=== PATIENT | male | born 1965 | race American Indian/Alaskan Native ===

== ENCOUNTER 2021-11-20 21:55 | Observation (INO) | payer OTHER ==
[2021-11-20] MEDS ORDERED: SODIUM CHLORIDE 0.9% 1000 ML 1,000 ML IV ONE (22:22)
[2021-11-20] MEDS ORDERED: ONDANSETRON 4 MG/2 ML INJ IV ONE (22:22)
[2021-11-20] MEDS ORDERED: PANTOPRAZOLE 40 MG INJ IV ONE (22:30)
--- NOTE | 2021-11-20 22:50 | Emergency Department Report ---
ED GI Bleed HPI - General Chief complaint: Abdominal Pain Stated complaint: RECTAL BLEED Time Seen by Provider: 11/20/21 22:21 Source: EMS Mode of arrival: Stretcher Limitations: No Limitations - History of Present Illness Initial comments: Patient is a 56-year-old male presents emergency department complaint of GI bleeding. Patient states that it started today he noticed bright red blood and dark stools. He states he has not had a colonoscopy in the past. He denies abdominal pain but notes some left-sided rib pain. Patient denies any vomiting. He has not had any fevers chills cough or shortness of breath. Patient denies any history of trauma. Of note patient is a Zoroastrian and does not want any blood transfusion. Severity scale (0 -10): 6 - Related Data Allergies Allergy/AdvReac Type Severity Reaction Status Date / Time No Known Drug Allergies Allergy Unknown Unknown Verified 11/20/21 22:33 ED Review of Systems ROS: Stated complaint: RECTAL BLEED Other details as noted in HPI Constitutional: denies: chills, fever Eyes: denies: eye pain, eye discharge, vision change ENT: denies: ear pain, throat pain Respiratory: denies: cough, shortness of breath, wheezing Cardiovascular: denies: chest pain, palpitations Endocrine: no symptoms reported Gastrointestinal: melena, hematochezia. denies: abdominal pain, nausea, vomiting, diarrhea, hematemesis Genitourinary: denies: urgency, dysuria Musculoskeletal: denies: back pain, joint swelling, arthralgia Skin: denies: rash, lesions Neurological: denies: headache, weakness, paresthesias Psychiatric: denies: anxiety, depression Hematological/Lymphatic: denies: easy bleeding, easy bruising ED Past Medical Hx - Social History Smoking Status: Never Smoker Substance Use Type: Alcohol ED Physical Exam - General Limitations: No Limitations General appearance: alert, in no apparent distress - Head Head exam: Present: atraumatic, normocephalic - Eye Eye exam: Present: normal appearance - ENT ENT exam: Present: mucous membranes moist - Neck Neck exam: Present: normal inspection - Respiratory Respiratory exam: Present: normal lung sounds bilaterally. Absent: respiratory distress - Cardiovascular Cardiovascular Exam: Present: tachycardia. Absent: systolic murmur, diastolic murmur, rubs, gallop - GI/Abdominal GI/Abdominal exam: Present: soft, normal bowel sounds - Extremities Exam Extremities exam: Present: normal inspection - Back Exam Back exam: Present: normal inspection - Neurological Exam Neurological exam: Present: alert, oriented X3 - Psychiatric Psychiatric exam: Present: normal affect, normal mood - Skin Skin exam: Present: warm, dry, intact, normal color. Absent: rash ED Course Vital Signs 11/20/21 11/20/21 11/20/21 22:04 22:34 22:45 Temperature 99 F Pulse Rate 124 H 86 84 Respiratory 16 16 Rate Blood Pressure 134/91 134/87 141/90 [Right] O2 Sat by Pulse 94 96 96 Oximetry - Reevaluation(s) Reevaluation #1: 11/20/21 23:16 Patient's rectal exam shows dark blood per rectum. There is also blood in the patient's clothes and on the towel beneath him. I am concerned for significant bleeding. Patient once again endorses that he does not want blood products. Patient's labs are pending. He is no longer tachycardic so IV fluids have been stopped as to not further dilute patient's blood. Reevaluation #2: 11/21/21 02:04 Patient's hemoglobin was noted to be 12.9. Patient's vital signs are stable. Patient had CTA did not reveal source of bleeding. Anuradha galarza, Dr. Finley have been consulted and recommended n.p.o. status and GoLYTELY as patient will undergo colonoscopy. - Consultations Consultation #1: 11/20/21 23:59 Anuradha Montoya Gastro: Agrees that patient is appropriate for admission here. Recommends n.p.o. status and GoLYTELY as patient will undergo colonoscopy. ED Medical Decision Making - Lab Data Result diagrams: 11/20/21 23:00 11/20/21 23:00 - Medical Decision Making Patient is a 56-year-old male presents emergency department complaint of lower GI bleeding. Patient is tachycardic but has a stable blood pressure upon initial evaluation. Plan for basic labs including type and screen, coagulation factors and CBC. Will also obtain chest x-ray given left-sided rib pain and likely a CT scan of the abdomen and pelvis. Given patient does not currently want a transfusion will try to manage his bleeding without providing blood products. I have given Protonix at this time. Will monitor patient closely and patient likely to be admitted pending results. Critical care attestation.: If time is entered above; I have spent that time in minutes in the direct care of this critically ill patient, excluding procedure time. ED Disposition Clinical Impression: Lower GI bleed Disposition: ADMITTED INPATIENT Is pt being admited?: Yes Does the pt Need Aspirin: No Condition: Stable
--- NOTE | 2021-11-20 23:13 | XRay Report ---
CHEST 1 VIEW INDICATION / CLINICAL INFORMATION: L rib pain. COMPARISON: None available. FINDINGS: SUPPORT DEVICES: None. HEART / MEDIASTINUM: No significant abnormality. LUNGS / PLEURA: The lungs are clear. No pneumothorax. ADDITIONAL FINDINGS: No significant additional findings. IMPRESSION: 1. No active cardiopulmonary disease. No abnormality of the left chest wall. Signer Name: Dinesh Muhammad II, MD Signed: 11/20/2021 11:09 PM Workstation Name: [id number]
[2021-11-20 23:21] LABS: Basophils % (Auto) 0.2 % (0.0-1.8); Eosinophils # (Auto) 0.2 K/mm3 (0.0-0.4); Eosinophils % (Auto) 1.2 % (0.0-4.3); Hematocrit 40.6 % (35.5-45.6); Hemoglobin 12.9 gm/dl (11.8-15.2); Lymphocytes # (Auto) 1.2 K/mm3 (1.2-5.4); Lymphocytes % (Auto) 8.2 % (13.4-35.0); Mean Corpuscular HGB Conc 32 % (32-34); Mean Corpuscular Volume 95 fl (84-94); Monocytes # (Auto) 0.9 K/mm3 (0.0-0.8); Monocytes % (Auto) 6.3 % (0.0-7.3); Platelet Count 267 K/mm3 (140-440); Red Blood Count 4.27 M/mm3 (3.65-5.03); Red Cell Distribution Width 13.2 % (13.2-15.2)
[2021-11-20 23:31] LABS: INR 1.03 (0.87-1.13)
[2021-11-20 23:32] LABS: Partial Thromboplastin Time 25.5 Sec. (24.2-36.6)
[2021-11-20 23:45] LABS: Alanine Aminotransferase 17 units/L (7-56); Albumin 3.3 g/dL (3.9-5); BUN/Creatinine Ratio 16; Blood Urea Nitrogen 18 mg/dL (9-20); Calcium 8.1 mg/dL (8.4-10.2); Hemolysis Index 21
[2021-11-21] MEDS ORDERED: POLYETHYLENE GLYCOL/ELECT SOLN 4000 ML PO ONE (00:05)
[2021-11-21] MEDS ORDERED: ACETAMINOPHEN 325 MG TAB PO PRN (00:18)
[2021-11-21] MEDS ORDERED: HYDROmorphone 1 MG/1 ML INJ IV PRN (00:18)
[2021-11-21] MEDS ORDERED: MORPHINE 2 MG/1 ML INJ IV PRN (00:18)
[2021-11-21] MEDS ORDERED: ALBUTEROL 2.5 MG/3 ML NEBU IH PRN (00:18)
[2021-11-21] MEDS ORDERED: ONDANSETRON 4 MG/2 ML INJ IV PRN (00:18)
--- NOTE | 2021-11-21 00:26 | History and Physical Report ---
History of Present Illness Date of examination: 11/21/21 Date of admission: 11/21/21 Chief complaint: Abdominal pain Rectal bleeding History of present illness: 56-year-old male with history of most likely alcohol abuse was brought to the hospital because of GI bleeding. Patient noticed bright red blood and dark stools. He states he has not had a colonoscopy in the past. He denies abdominal pain but notes some left-sided rib pain. Patient denies any vomiting. He has not had any fevers chills cough or shortness of breath. Patient denies any history of trauma. Of note patient is a Rastafari and does not want any blood transfusion. In the emergency room patient is found to have hemoglobin of 12.9 and hematocrit 40.6, platelet 269 and WBC 14.4. Subsequently Case discussed with GI doctors were going to admit the patient we will put the patient on Protonix drip and GI will see the patient for colonoscopy in the morning Past History Past Medical History: other (Alcohol abuse) Past Surgical History: No surgical history Social history: alcohol abuse Family history: no significant family history Medications and Allergies Allergies Allergy/AdvReac Type Severity Reaction Status Date / Time No Known Drug Allergies Allergy Unknown Unknown Verified 11/20/21 22:33 Review of Systems All systems: negative Gastrointestinal: abdominal pain, diarrhea, melena, hematochezia Exam - Constitutional Vitals: Temp Pulse Resp BP Pulse Ox 99 F 84 16 141/90 96 11/20/21 22:04 11/20/21 22:45 11/20/21 22:34 11/20/21 22:45 11/20/21 22:45 General appearance: Present: no acute distress, well-nourished - EENT Eyes: Present: PERRL ENT: hearing intact, clear oral mucosa - Neck Neck: Present: supple, normal ROM - Respiratory Respiratory effort: normal Respiratory: bilateral: diminished - Cardiovascular Heart Sounds: Present: S1 & S2. Absent: rub, click - Extremities Extremities: pulses symmetrical, No edema Peripheral Pulses: within normal limits - Abdominal General gastrointestinal: Present: soft, non-tender, non-distended, normal bowel sounds Male genitourinary: Present: normal - Integumentary Integumentary: Present: clear, warm, dry - Musculoskeletal Musculoskeletal: gait normal, strength equal bilaterally - Psychiatric Psychiatric: appropriate mood/affect, intact judgment & insight - Neurologic Neurologic: CNII-XII intact, moves all extremities HEART Score - HEART Score Troponin: Troponin T < 0.010 ng/mL (0.00-0.029) 11/20/21 23:00 Results - Labs CBC & Chem 7: 11/20/21 23:00 11/20/21 23:00 Labs: Laboratory Last Values WBC 14.4 K/mm3 (4.5-11.0) H 11/20/21 23:00 RBC 4.27 M/mm3 (3.65-5.03) 11/20/21 23:00 Hgb 12.9 gm/dl (11.8-15.2) 11/20/21 23:00 Hct 40.6 % (35.5-45.6) 11/20/21 23:00 MCV 95 fl (84-94) H 11/20/21 23:00 MCH 30 pg (28-32) 11/20/21 23:00 MCHC 32 % (32-34) 11/20/21 23:00 RDW 13.2 % (13.2-15.2) 11/20/21 23:00 Plt Count 267 K/mm3 (140-440) 11/20/21 23:00 Lymph % (Auto) 8.2 % (13.4-35.0) L 11/20/21 23:00 [place] % (Auto) 6.3 % (0.0-7.3) 11/20/21 23:00 Eos % (Auto) 1.2 % (0.0-4.3) 11/20/21 23:00 Baso % (Auto) 0.2 % (0.0-1.8) 11/20/21 23:00 Lymph # (Auto) 1.2 K/mm3 (1.2-5.4) 11/20/21 23:00 [place] # (Auto) 0.9 K/mm3 (0.0-0.8) H 11/20/21 23:00 Eos # (Auto) 0.2 K/mm3 (0.0-0.4) 11/20/21 23:00 Baso # (Auto) 0.0 K/mm3 (0.0-0.1) 11/20/21 23:00 Seg Neutrophils % 84.1 % (40.0-70.0) H 11/20/21 23:00 Seg Neutrophils # 12.1 K/mm3 (1.8-7.7) H 11/20/21 23:00 PT 14.6 Sec. (12.2-14.9) 11/20/21 23:00 INR 1.03 (0.87-1.13) 11/20/21 23:00 APTT 25.5 Sec. (24.2-36.6) 11/20/21 23:00 Sodium 138 mmol/L (137-145) 11/20/21 23:00 Potassium 4.7 mmol/L (3.6-5.0) 11/20/21 23:00 Chloride 108.4 mmol/L (98-107) H 11/20/21 23:00 Carbon Dioxide 22 mmol/L (22-30) 11/20/21 23:00 Anion Gap 12 mmol/L 11/20/21 23:00 BUN 18 mg/dL (9-20) 11/20/21 23:00 Creatinine 1.1 mg/dL (0.8-1.3) 11/20/21 23:00 Estimated GFR > 60 ml/min 11/20/21 23:00 BUN/Creatinine Ratio 16 % 11/20/21 23:00 Glucose 150 mg/dL (75-100) H 11/20/21 23:00 Calcium 8.1 mg/dL (8.4-10.2) L 11/20/21 23:00 Magnesium 1.90 mg/dL (1.7-2.3) 11/20/21 23:00 Total Bilirubin 0.20 mg/dL (0.1-1.2) 11/20/21 23:00 AST 19 units/L (5-40) 11/20/21 23:00 ALT 17 units/L (7-56) 11/20/21 23:00 Alkaline Phosphatase 74 units/L (35-129) 11/20/21 23:00 Troponin T < 0.010 ng/mL (0.00-0.029) 11/20/21 23:00 Total Protein 5.8 g/dL (6.3-8.2) L 11/20/21 23:00 Albumin 3.3 g/dL (3.9-5) L 11/20/21 23:00 Albumin/Globulin Ratio 1.3 % 11/20/21 23:00 Lipase 35 units/L (13-60) 11/20/21 23:00 Blood Type B POSITIVE 11/20/21 23:00 Microbiology: Microbiology 11/20/21 23:00 Stool Stool Occult Blood (ABEBE) - Final - Imaging and Cardiology Chest x-ray: report reviewed Assessment and Plan VTE prophylaxis?: Mechanical Plan of care discussed with patient/family: Yes - Patient Problems (1) Rectal bleeding Current Visit: Yes Status: Acute Plan to address problem: Admit the patient to the medical telemetry. NPO. D5 normal saline at the rate of 100 cc/h. Protonix drip 8 mg/h. Serial H&H. GI evaluation for colonoscopy in the morning. Patient is a Rastafari (2) Abdominal pain Current Visit: Yes Status: Acute Plan to address problem: NPO. D5 normal saline at the rate of 100 cc/h. Protonix drip 8 mg/h. Morphine 2 mg IV every 4 hours as needed. Serial H&H. GI evaluation for colonoscopy in the morning. Patient is a Rastafari (3) Alcohol abuse Current Visit: Yes Status: Acute Plan to address problem: Patient counseled regarding quit drinking. We put the patient on thiamine folic acid and banana bag (4) DVT prophylaxis Current Visit: Yes Status: Acute Plan to address problem: SCD for DVT prophylaxis. Protonix drip for GI prophylaxis. Patient is a full code
[2021-11-21] MEDS ORDERED: THIAMINE 100 MG, FOLIC ACID 1 MG, MULTIPLE VITAMIN INJ, ADULT 10 ML in SODIUM CHLORIDE ... IV ONE (00:27)
[2021-11-21] MEDS ORDERED: D5W/0.9% NACL 1,000 ML IV SCH (01:00)
--- NOTE | 2021-11-21 01:30 | Cat Scan Report ---
CTA ABDOMEN AND PELVIS WITHOUT AND WITH CONTRAST INDICATION / CLINICAL INFORMATION: lower gi bleeding; L flank pain. TECHNIQUE: Axial CT images were obtained through the abdomen and pelvis before and after after inject ion of 100 cc Omnipaque 350 IV contrast. 3 plane MIP / 3D reconstructions were produced. Multiple pha ses of contrast were acquired including arterial, portal venous, and delayed phase. All CT scans at t his location are performed using CT dose reduction for ALARA by means of automated exposure control. COMPARISON: None available. VASCULAR FINDINGS: AORTA: No significant abnormality. RENAL ARTERIES: No significant abnormality. CELIAC ARTERY: No significant abnormality. SUPERIOR MESENTERIC ARTERY: No significant abnormality. INFERIOR MESENTERIC ARTERY: No significant abnormality. RIGHT ILIAC ARTERIES: No significant abnormality.. LEFT ILIAC ARTERIES: No significant abnormality.. NONVASCULAR FINDINGS: LOWER CHEST: No significant abnormality of the imaged chest. LIVER: No significant abnormality. GALLBLADDER: No significant abnormality. BILE DUCTS: No significant abnormality. SPLEEN: No significant abnormality. PANCREAS: No significant abnormality. ADRENALS: Left adrenal gland demonstrates nodular thickening compatible with adenoma. RIGHT KIDNEY / URETER: No significant abnormality. LEFT KIDNEY / URETER: No significant abnormality. STOMACH / DUODENUM / SMALL BOWEL: No significant abnormality. COLON: Small hyperdense focus at 0700 hours within the lower rectum image #339 series #2 persists fol lowing administration of intravenous contrast without significant interval change. This is thought to reflect high attenuation stool. Additionally, a diverticulum along the anterior cecum demonstrates h igh attenuation material on the noncontrast series and remain stable. No active extravasation of cont rast within the lumen of the bowel is demonstrated. APPENDIX: No significant abnormality. PERITONEUM: No free air or free fluid are present within the abdomen or pelvis. LYMPH NODES: No significant adenopathy. IVC / VEINS: No significant abnormality. URINARY BLADDER: No significant abnormality. REPRODUCTIVE ORGANS: Mild nonspecific periprostatic fat stranding is present on multiple series. Pros tatitis not excluded. ADDITIONAL ABDOMINAL/PELVIC FINDINGS: None. SKELETAL SYSTEM: No significant abnormality. . IMPRESSION: 1. No specific etiology of lower GI bleed demonstrated. 2. Mild prostatitis not excluded. Signer Name: Dinesh Muhammad II, MD Signed: 11/21/2021 1:26 AM Workstation Name: [id number]
[2021-11-21] MEDS: PANTOPRAZOLE 80 MG in SODIUM CHLORIDE 0.9% 100 ML IV SCH ×2 (01:56→21:51)
[2021-11-21] MEDS: IPRATROPIUM/ALBUTEROL SULFATE 3 ML AMPUL.NEB IH SCH ×4 (03:32→23:12)
--- NOTE | 2021-11-21 09:15 | Progress Note ---
Assessment and Plan Assessment and plan: -- Rectal bleeding Current Visit: Yes Status: Acute D5 normal saline at the rate of 100 cc/h. Protonix drip 8 mg/h. Serial H&H. GI evaluation for colonoscopy in the morning. Patient is a Sikhism -- Abdominal pain Current Visit: Yes Status: Acute NPO. D5 normal saline at the rate of 100 cc/h. Protonix drip 8 mg/h. Morphine 2 mg IV every 4 hours as needed. Serial H&H. GI evaluation for colonoscopy in the morning. Patient is a Sikhism --Alcohol abuse Current Visit: Yes Status: Acute Patient counseled regarding quit drinking. We put the patient on thiamine folic acid and banana bag -- DVT prophylaxis Current Visit: Yes Status: Acute SCD for DVT prophylaxis. Protonix drip for GI prophylaxis. Patient is a full code History Interval history: I seen and examined the patient at the bedside Patient's chart and medications reviewed Patient feels slightly better still has some abdominal pain Vital signs noted Admitted with rectal bleeding, continues to have intermittent episodes GI has evaluated the patient. Recommend colonoscopy tomorrow Hospitalist Physical - Constitutional Vitals: Temp Pulse Resp BP Pulse Ox 98.4 F 83 18 151/99 99 11/21/21 08:16 11/21/21 08:16 11/21/21 08:16 11/21/21 08:16 11/21/21 08:16 General appearance: Present: no acute distress, well-nourished - EENT Eyes: Present: PERRL, EOM intact - Neck Neck: Present: supple, normal ROM - Respiratory Respiratory effort: normal Respiratory: bilateral: diminished, negative: rales, rhonchi, wheezing - Cardiovascular Rhythm: regular Heart Sounds: Present: S1 & S2 - Extremities Extremities: no ischemia, No edema - Abdominal General gastrointestinal: soft, non-tender, non-distended, normal bowel sounds - Integumentary Integumentary: Present: clear, warm - Psychiatric Psychiatric: appropriate mood/affect, cooperative - Neurologic Neurologic: moves all extremities HEART Score - HEART Score Troponin: Troponin T < 0.010 ng/mL (0.00-0.029) 11/20/21 23:00 Results - Labs CBC & Chem 7: 11/21/21 19:55 11/20/21 23:00 Labs: Laboratory Last Values WBC 14.4 K/mm3 (4.5-11.0) H 11/20/21 23:00 RBC 4.27 M/mm3 (3.65-5.03) 11/20/21 23:00 Hgb 12.9 gm/dl (11.8-15.2) 11/20/21 23:00 Hct 40.6 % (35.5-45.6) 11/20/21 23:00 MCV 95 fl (84-94) H 11/20/21 23:00 MCH 30 pg (28-32) 11/20/21 23:00 MCHC 32 % (32-34) 11/20/21 23:00 RDW 13.2 % (13.2-15.2) 11/20/21 23:00 Plt Count 267 K/mm3 (140-440) 11/20/21 23:00 Lymph % (Auto) 8.2 % (13.4-35.0) L 11/20/21 23:00 [place] % (Auto) 6.3 % (0.0-7.3) 11/20/21 23:00 Eos % (Auto) 1.2 % (0.0-4.3) 11/20/21 23:00 Baso % (Auto) 0.2 % (0.0-1.8) 11/20/21 23:00 Lymph # (Auto) 1.2 K/mm3 (1.2-5.4) 11/20/21 23:00 [place] # (Auto) 0.9 K/mm3 (0.0-0.8) H 11/20/21 23:00 Eos # (Auto) 0.2 K/mm3 (0.0-0.4) 11/20/21 23:00 Baso # (Auto) 0.0 K/mm3 (0.0-0.1) 11/20/21 23:00 Seg Neutrophils % 84.1 % (40.0-70.0) H 11/20/21 23:00 Seg Neutrophils # 12.1 K/mm3 (1.8-7.7) H 11/20/21 23:00 PT 14.6 Sec. (12.2-14.9) 11/20/21 23:00 INR 1.03 (0.87-1.13) 11/20/21 23:00 APTT 25.5 Sec. (24.2-36.6) 11/20/21 23:00 Sodium 138 mmol/L (137-145) 11/20/21 23:00 Potassium 4.7 mmol/L (3.6-5.0) 11/20/21 23:00 Chloride 108.4 mmol/L (98-107) H 11/20/21 23:00 Carbon Dioxide 22 mmol/L (22-30) 11/20/21 23:00 Anion Gap 12 mmol/L 11/20/21 23:00 BUN 18 mg/dL (9-20) 11/20/21 23:00 Creatinine 1.1 mg/dL (0.8-1.3) 11/20/21 23:00 Estimated GFR > 60 ml/min 11/20/21 23:00 BUN/Creatinine Ratio 16 % 11/20/21 23:00 Glucose 150 mg/dL (75-100) H 11/20/21 23:00 Calcium 8.1 mg/dL (8.4-10.2) L 11/20/21 23:00 Magnesium 1.90 mg/dL (1.7-2.3) 11/20/21 23:00 Total Bilirubin 0.20 mg/dL (0.1-1.2) 11/20/21 23:00 AST 19 units/L (5-40) 11/20/21 23:00 ALT 17 units/L (7-56) 11/20/21 23:00 Alkaline Phosphatase 74 units/L (35-129) 11/20/21 23:00 Troponin T < 0.010 ng/mL (0.00-0.029) 11/20/21 23:00 Total Protein 5.8 g/dL (6.3-8.2) L 11/20/21 23:00 Albumin 3.3 g/dL (3.9-5) L 11/20/21 23:00 Albumin/Globulin Ratio 1.3 % 11/20/21 23:00 Lipase 35 units/L (13-60) 11/20/21 23:00 Blood Type B POSITIVE 11/20/21 23:00 Antibody Screen Negative 11/20/21 23:00 Microbiology: Microbiology 11/20/21 23:00 Stool Stool Occult Blood (ABEBE) - Final Adrian/IV: Voiding Method Urinal Active Medications - Current Medications Current Medications: Generic Name Dose Route Start Last Admin Trade Name Freq PRN Reason Stop Dose Admin Acetaminophen 650 mg 11/21/21 00:18 Acetaminophen 325 Mg Tab PO Q4H PRN Pain MILD(1-3)/Fever >100.5/SEYMOUR Albuterol 2.5 mg 11/21/21 00:18 Albuterol 2.5 Mg/3 Ml Nebu IH Q3HRT PRN Shortness Of Breath Albuterol/Ipratropium 1 ampul 11/21/21 02:00 11/21/21 03:32 Ipratropium/Albuterol Sulfate 3 Ml Ampul.Neb IH Not Given Q6HRT CARLOS Hydromorphone HCl 0.5 mg 11/21/21 00:18 Hydromorphone 1 Mg/1 Ml Inj IV Q3H PRN Pain , Severe (7-10) Dextrose/Sodium Chloride 1,000 mls @ 100 mls/hr 11/21/21 01:00 11/21/21 07:53 D5ns IV 100 mls/hr DIRECT CARLOS Administration Pantoprazole Sodium 80 mg/ 100 mls @ 10 mls/hr 11/21/21 01:00 11/21/21 01:56 Sodium Chloride IV 8 mg/hr DIRECT CARLOS 10 mls/hr Administration 8 MG/HR Morphine Sulfate 2 mg 11/21/21 00:18 Morphine 2 Mg/1 Ml Inj IV Q4H PRN Pain, Moderate (4-6) Ondansetron HCl 4 mg 11/21/21 00:18 Ondansetron 4 Mg/2 Ml Inj IV Q8H PRN Nausea And Vomiting Sodium Chloride 10 ml 11/21/21 10:00 Sodium Chloride 0.9% 10 Ml Flush Syringe IV BID CARLOS Sodium Chloride 10 ml 11/21/21 00:18 Sodium Chloride 0.9% 10 Ml Flush Syringe IV PRN PRN LINE FLUSH
--- NOTE | 2021-11-21 16:49 | Consultation ---
DATE OF CONSULTATION: 11/21/2021 INDICATIONS: 1. Anemia. 2. GI bleed. REFERRING PHYSICIAN: Dr. Desi Wolf HISTORY OF PRESENT ILLNESS: The patient is a 56-year-old male with history of alcohol abuse, now being seen for GI bleed. The patient reports bouts of bright red followed by black stools, which brought him to the Emergency Room 1-2 days prior to admission. The patient reports he has also had what he calls as gurgling sensation in his mid to upper abdominal area. He reports no nausea or vomiting. Denies any reflux. Denies any weight loss. Denies any lower GI symptoms. The patient has never had GI evaluation in the past. No other specific problems or complaints. PAST MEDICAL HISTORY: Alcohol abuse. MEDICATIONS: Reviewed and updated in chart. ALLERGIES: No known drug allergies. SOCIAL HISTORY: Alcohol abuse. Denies tobacco or IV drug abuse. FAMILY HISTORY: Negative for colon cancer, IBD, or liver disease. REVIEW OF SYSTEMS: GENERAL: Reports some weakness. HEENT: No visual complaints or tinnitus. PULMONARY: Shortness of breath, chest pain. GASTROINTESTINAL: Reports bloody stools. All points of 13-point review of system otherwise negative. PHYSICAL EXAMINATION: VITAL SIGNS: Temperature of 98.4, pulse 80, respiration 18, blood pressure 151/99. GENERAL: Fairly nourished black male in no acute distress. HEENT: Pupils round and reactive. PULMONARY: Clear to auscultation bilaterally. CARDIOVASCULAR: Regular rate and rhythm. Normal S1, S2. ABDOMEN: Soft, nontender, nondistended. SKIN: No obvious rashes. LABORATORY DATA: Pertinent for white count of 14.4, hemoglobin and hematocrit of 12.9 and 40.6, platelet count of 267. Coags within normal limits. Chem-7 within normal limits. LFTs within normal limits. CTA was negative for signs of bleeding. ASSESSMENT: A 56-year-old male with a history of alcohol abuse, now presents with bright red and black stools prior to admission with no history of gastrointestinal evaluation in the past. Concern for both upper and lower potential gastrointestinal bleed pathology. PLAN: 1. Follow hematocrit and transfuse as needed. 2. PPI daily. 3. Avoid NSAIDs and aspirin. 4. Clear liquid diet with n.p.o. after midnight. 5. Plan EGD, colonoscopy in a.m. TID: [id number] RECEIPT: [id number] [facility]LE/AIDAN
[2021-11-21] MEDS ORDERED: POLYETHYLENE GLYCOL/ELECT SOLN 4000 ML PO SCH (17:00)
[2021-11-21 20:34] LABS: Hematocrit 30.5 % (35.5-45.6); Hemoglobin 10.2 gm/dl (11.8-15.2)
--- NOTE | 2021-11-22 00:56 | Consultation ---
DATE OF CONSULTATION: 11/21/2021 REFERRING PHYSICIAN: Desi Wolf MD INDICATION: 1. Rectal bleeding. 2. Anemia. HISTORY OF PRESENT ILLNESS: The patient is a 56-year-old black male who presents for rectal bleeding. The patient reports usual state of health when he started noticing rectal bleeding. The patient does report history of alcohol abuse. He reported bright red. DICTATION ENDS ABRUPTLY. TID: [id number] RECEIPT: [id number] [facility]/[place]
[2021-11-22 06:05] LABS: Basophils % (Auto) 0.3 % (0.0-1.8); Eosinophils # (Auto) 0.1 K/mm3 (0.0-0.4); Eosinophils % (Auto) 1.7 % (0.0-4.3); Hematocrit 27.1 % (35.5-45.6); Hemoglobin 8.9 gm/dl (11.8-15.2); Lymphocytes # (Auto) 1.6 K/mm3 (1.2-5.4); Lymphocytes % (Auto) 18.3 % (13.4-35.0); Mean Corpuscular HGB Conc 33 % (32-34); Mean Corpuscular Volume 94 fl (84-94); Monocytes # (Auto) 0.5 K/mm3 (0.0-0.8); Monocytes % (Auto) 6.3 % (0.0-7.3); Platelet Count 262 K/mm3 (140-440); Red Blood Count 2.87 M/mm3 (3.65-5.03); Red Cell Distribution Width 13.6 % (13.2-15.2)
[2021-11-22 06:30] LABS: BUN/Creatinine Ratio 8; Blood Urea Nitrogen 6 mg/dL (9-20); Calcium 7.2 mg/dL (8.4-10.2); Hemolysis Index 3
[2021-11-22] MEDS ORDERED: WATER FOR IRRIG STERILE 250 ML BOTTLE IR ONE (08:30)
[2021-11-22] MEDS ORDERED: SODIUM CHLORIDE 0.9% 1000 ML 1,000 ML ONE (08:30)
[2021-11-22] MEDS ORDERED: WATER FOR IRRIG STERILE 1,000 ML BOTTLE ONE (08:30)
[2021-11-22] MEDS ORDERED: propofoL 200 MG/20 ML VIAL IV ONE (08:52)
--- NOTE | 2021-11-22 09:02 | Anesthesia Consultation ---
Anesthesia Consult and Med Hx Date of service: 11/22/21 - Airway Anesthetic Teeth Evaluation: Good ROM Head & Neck: Adequate Mental/Hyoid Distance: Adequate Mallampati Class: Class III Intubation Access Assessment: Possibly Difficult - Pre-Operative Health Status ASA Pre-Surgery Classification: ASA2 Proposed Anesthetic Plan: MAC - Pulmonary Hx Smoking: No Hx Respiratory Symptoms: No - Cardiovascular System Hx Hypertension: No Hx Heart Attack/AMI: No - Central Nervous System CVA: No - Endocrine Hx Renal Disease: No Hx Liver Disease: No Hx Insulin Dependent Diabetes: No Hx Non-Insulin Dependent Diabetes: No Hx Thyroid Disease: No - Hematic Hx Anemia: Yes (concern for GI bleed)
--- NOTE | 2021-11-22 09:03 | Anesthesia Day of Surgery ---
Anesthesia Day of Surgery - Day of Surgery Patient Examined: Yes Patient H&P Reviewed: Yes Patient is NPO: Yes
--- NOTE | 2021-11-22 09:12 | Post Operative Note ---
Pre-op diagnosis: gi bleed Post-op diagnosis: same Findings: EGD: hiatal hernia - gastritis - negative other Colon: sigmoid diverticulosis - medium internal hemorrhoids - negative other Procedure: EGD/colon Anesthesia: MAC Surgeon: ANTOINE RAMIREZ Estimated blood loss: none Pathology: list Specimen disposition: to lab Condition: stable Disposition: floor
--- NOTE | 2021-11-22 09:29 | Operative Report ---
DATE OF SURGERY: 11/22/2021 PROCEDURE: Colonoscopy. INDICATIONS: 1. Rectal bleeding. 2. Anemia. MEDICATIONS: Propofol per ACCOUNT DEVELOPMENT MANAGER. COMPLICATIONS: None. DESCRIPTION OF PROCEDURE: The patient was brought to the procedure suite. The patient had the procedure discussed with him at length. All risks, complications and benefits discussed, after which the patient signed for the procedure to be performed. The patient was placed in left lateral decubitus position. Rectal exam performed prior to insertion of scope. After adequate sedation with medication as above, scope inserted into the rectum and brought to level of cecum. Ileocecal valve, appendiceal orifice, cecal strap were adequately visualized. Colonoscope was then removed and mucosa visualized. Prep quality for this procedure was fair. The patient's vital signs remained stable throughout the procedure. FINDINGS: There were no mass lesions or polyps noted during this procedure. There were few small to medium sigmoid diverticulosis noted. Retroflexion view performed in the rectum showed medium internal hemorrhoids. No stigmata or signs of bleeding were noted. The patient tolerated the procedure well. No complications noted during procedure. IMPRESSION: 1. Sigmoid diverticulosis. 2. Medium internal hemorrhoids. 3. Otherwise, normal colonoscopy. RECOMMENDATIONS: 1. Follow hematocrit and transfuse as needed. 2. Advance diet. 3. If H and H stable later today, okay to discharge from GI standpoint. TID: [id number] RECEIPT: [id number] [facility]
--- NOTE | 2021-11-22 09:29 | Operative Report ---
DATE OF SURGERY: 11/22/2021 PROCEDURE: EGD with cold biopsy. INDICATIONS: 1. Anemia. 2. Gastrointestinal bleed. MEDICATIONS: Propofol per ENGINE SETTER. COMPLICATIONS: None. DESCRIPTION OF PROCEDURE: The patient brought to procedure suite. The patient had the procedure discussed with him at length. All risks, complications, and benefits discussed, after which the patient signed for the procedure to be performed. The patient was placed in left lateral decubitus position. Mouth block placed in patient's oral cavity. After adequate sedation with medication as above, endoscope placed in the mouth and brought to level of second portion of duodenum. Retroflexion views performed. The patient's vital signs remained stable throughout the procedure. FINDINGS: There was a small hiatal hernia at GE junction at 40 cm from the gums. Esophagus otherwise appeared to be normal. There was mild antral gastritis noted. Biopsies were taken and sent to pathology. Remaining stomach otherwise appeared to be normal. Duodenum appeared to be normal. Retroflexion view performed in the stomach showed no other pathology other than noted above. The patient tolerated the procedure well. No complications noted during procedure. IMPRESSION: 1. Hiatal hernia. 2. Mild gastritis, biopsies performed. 3. Otherwise, normal endoscopy, normal EGD. RECOMMENDATIONS: 1. Follow up biopsy results. 2. If H. pylori positive, we will treat. 3. Follow hematocrit and transfuse as needed. 4. Colonoscopy to follow. Further recommendation based on colonoscopy results. TID: [id number] RECEIPT: [id number] [facility]
[2021-11-22] MEDS ORDERED: PANTOPRAZOLE 40 MG INJ IV SCH (10:00)
--- NOTE | 2021-11-22 11:54 | Post Anesthesia Evaluation ---
- Post Anesthesia Evaluation Patient Participated: Yes Airway Patent: Yes Stable Respiratory Function: Yes Nausea/Vomiting: No Temp > 96.8F: Yes Pain Manageable: Yes Adequeate Hydration: Yes Anesthesia Complications: No
[2021-11-22 15:56] LABS: Hematocrit 24.2 % (35.5-45.6)
--- NOTE | 2021-11-22 16:25 | Discharge Summary ---
Providers - Providers Date of Admission: 11/21/21 00:19 Date of discharge: 11/22/21 Attending physician: KERVIN ALLEN 11/21/21 00:18 Consult to Physician [CONS] Routine Comment: Dr. Cerda spoke with Dr. Finley @ 0000 Consulting Provider: DONNY KING Physician Instructions: Reason For Exam: [facility] Primary care physician: BRIGITTE TANG Hospitalization Reason for admission: Rectal bleeding Condition: Stable Procedures: EGD: hiatal hernia - gastritis - negative other Colon: sigmoid diverticulosis - medium internal hemorrhoids - negative other Hospital course: -- Rectal bleeding Current Visit: Yes Status: Acute D5 normal saline at the rate of 100 cc/h. Protonix drip 8 mg/h. Serial H&H. GI evaluation for colonoscopy in the morning. Patient is a [employer] orth[employer] -- Abdominal pain Current Visit: Yes Status: Acute NPO. D5 normal saline at the rate of 100 cc/h. Protonix drip 8 mg/h. Morphine 2 mg IV every 4 hours as needed. Serial H&H. GI evaluation for colonoscopy in the morning. Patient is a [employer] orthodox --Alcohol abuse Current Visit: Yes Status: Acute Patient counseled regarding quit drinking. We put the patient on thiamine folic acid and banana bag -- DVT prophylaxis Current Visit: Yes Status: Acute SCD for DVT prophylaxis. Protonix drip for GI prophylaxis. Patient is a full code Final Discharge Diagnosis (Prints w/discharge instructions): Sigmoid diverticulosis. Rectal bleeding. Abdominal pain. History of alcohol use Time spent for discharge: 35 min Core Measure Documentation - Palliative Care Palliative Care/ Comfort Measures: Not Applicable - Core Measures Any of the following diagnoses?: none Exam - Constitutional Vitals: Temp Pulse Resp BP Pulse Ox 98.6 F 101 H 18 148/91 99 11/22/21 11:22 11/22/21 11:22 11/22/21 12:00 11/22/21 11:22 11/22/21 12:00 General appearance: Present: no acute distress, well-nourished - EENT Eyes: Present: PERRL, EOM intact - Neck Neck: Present: supple, normal ROM - Respiratory Respiratory effort: normal Respiratory: bilateral: diminished, negative: rales, rhonchi, wheezing - Cardiovascular Rhythm: regular Heart Sounds: Present: S1 & S2 - Extremities Extremities: no ischemia, No edema - Abdominal General gastrointestinal: Present: soft, non-tender, non-distended, normal bowel sounds - Integumentary Integumentary: Present: clear, warm - Musculoskeletal Musculoskeletal: strength equal bilaterally - Psychiatric Psychiatric: appropriate mood/affect, cooperative - Neurologic Neurologic: CNII-XII intact, moves all extremities Plan Activity: no restrictions Diet: regular Additional Instructions: If you have worsening symptoms contact MD or go to the nearest emergency room as needed. Advised to see PMD in 1 week. Advised to see GI in 1 to 2 weeks. If you notice any episodes of bleeding call MD or go to the nearest emergency room Follow up with: BRIGITTE TANG MD [Primary Care Provider] - 7 Days ANTOINE RAMIREZ MD [Staff Physician] - 10 Days Prescriptions: Docusate Sodium [Colace] 100 mg PO BID PRN #20 capsule PRN Reason: Constipation Pantoprazole [Protonix] 40 mg PO QDAY #30 tablet
[2021-11-22 17:15] VITALS: BP 160/93
--- NOTE | 2021-11-23 13:53 | Gastroenterology Progress Note ---
Assessment and Plan 1. GI: stable without signs bleeding overnight - diet as tolerated - ok to dc - will sign off, call if needed Subjective Date of service: 11/23/21 Interval history: - no signs bleeding overnight, no GI complaints Objective - Constitutional Vitals: Temp Pulse Resp BP Pulse Ox 97.7 F 98 H 16 160/93 98 11/22/21 16:35 11/22/21 16:35 11/22/21 16:35 11/22/21 16:35 11/22/21 16:35 General appearance: no acute distress - EENT Eyes: PERRL - Respiratory Respiratory: bilateral: CTA - Cardiovascular Rhythm: regular Heart Sounds: Present: S1 & S2 - Gastrointestinal General gastrointestinal: Present: soft, non-tender, non-distended - Labs CBC & Chem 7: 11/22/21 15:28 11/22/21 05:13 Labs: Laboratory Results - last 24 hr 11/22/21 15:28 Hgb 8.0 L Hct 24.2 L
--- NOTE | 2021-11-23 13:53 | Post Anesthesia Evaluation ---
- Post Anesthesia Evaluation Other Comments: Patient discharged prior to anesthesia rounds without issues. No complaints/concerns voiced by [facility]'s nursing staff.
--- NOTE | 2021-11-23 14:09 | Electrocardiograph Report ---
[facility] Test Date: 2021-11-21 Test Time: 07:59:27 Pat Name: ASIM MCCALLUM Department: Room: A478 1 Gender: M Front End Loader Driver: ALEXANDRA : 1965 Requested By: BRIA MELLO Order Number: [id number] Reading MD: Nikc Talavera Measurements Intervals [place] Rate: 81 P: 0 CA: 170 QRS: 19 QRSD: 73 T: 133 QT: 366 QTc: 425 Interpretive Statements Sinus rhythm Nonspecific T abnormalities, lateral leads No previous ECG available for comparison Electronically Signed On 11-23-2021 14:09:42 EDT by Nick Talavera
== END 2021-11-22 17:50 | disposition home or self-care (01) ==
LOC: ED 21:55 → INTOOBSV 11-21 00:19 → 4A 11-21 00:19
PROVIDERS: ADMIT Hospitalist; ATTEND Internal Medicine
DX: K92.2 Gastrointestinal hemorrhage, unspecified (principal); R10.9 Unspecified abdominal pain; F10.10 Alcohol abuse, uncomplicated; D64.9 Anemia, unspecified; K56.2 Volvulus; K64.9 Unspecified hemorrhoids; Z79.899 Other long term (current) drug therapy; Z98.890 Other specified postprocedural states
CPT/HCPCS: 36415; 43239; 45378; 71045; 74174; 80048; 80053; 82270; 83690; 83735; 84484; 85014; 85018; 85025; 85610; 85730; 86850; 86900; 86901; 88305; 88342; 93005; 96361; 96365; 96366; 96368; 96375; 96376; 99285; C9113; G0378; J2405; J2704; J3411; J3490; J7030; J7042; Q9967; J7120; Q0162

== ENCOUNTER 2021-12-26 09:00 | Outpatient (CLI) | payer OTHER ==
[2021-12-26 09:33] LABS: Bilirubin,Urine NEG (Negative); Blood,Urine NEG (Negative); Color,Urine Amber (Yellow); RBC,Urine < 1.0 /HPF (0.0-6.0); Urobilinogen,Urine < 2.0 mg/dL (<2.0); WBC,Urine < 1.0 /HPF (0.0-6.0)
[2021-12-26 09:45] LABS: Basophils % (Auto) 0.8 % (0.0-1.8); Eosinophils # (Auto) 0.2 K/mm3 (0.0-0.4); Eosinophils % (Auto) 4.4 % (0.0-4.3); Hematocrit 30.6 % (35.5-45.6); Hemoglobin 10.4 gm/dl (11.8-15.2); Lymphocytes % (Auto) 17.2 % (13.4-35.0); Mean Corpuscular HGB Conc 34 % (32-34); Mean Corpuscular Volume 82 fl (84-94); Monocytes # (Auto) 0.4 K/mm3 (0.0-0.8); Monocytes % (Auto) 7.9 % (0.0-7.3); Platelet Count 456 K/mm3 (140-440); Red Blood Count 3.76 M/mm3 (3.65-5.03)
[2021-12-26 10:10] LABS: % Iron Saturation 5.52 %; Alanine Aminotransferase 11 units/L (7-56); Albumin 4.8 g/dL (3.9-5); BUN/Creatinine Ratio 12; Blood Urea Nitrogen 12 mg/dL (9-20); Calcium 9.7 mg/dL (8.4-10.2); Chol/HDL Ratio 2.97 %; HDL Cholesterol 71 mg/dL (40-59); Hemolysis Index 3; Iron 23 ug/dL (49-181); LDL Cholesterol,Direct 135 mg/dL (50-130); Total Iron Binding Capacity 417 mcg/dL (250-450)
== END 2021-12-26 09:01 | disposition home or self-care (01) ==
LOC: LAB 09:00
PROVIDERS: ATTEND Internal Medicine
DX: Z00.00 Encounter for general adult medical examination without abnormal findings (principal); D64.9 Anemia, unspecified; N41.0 Acute prostatitis; N52.9 Male erectile dysfunction, unspecified; R53.83 Other fatigue; E55.9 Vitamin D deficiency, unspecified; R73.9 Hyperglycemia, unspecified
CPT/HCPCS: 36415; 80053; 80061; 81001; 82306; 82728; 83036; 83550; 84443; 85025

== ENCOUNTER 2022-04-03 08:49 | Outpatient (CLI) | payer OTHER ==
[2022-04-03 09:14] LABS: Hematocrit 49.4 % (35.5-45.6); Hemoglobin 15.7 gm/dl (11.8-15.2); Mean Corpuscular HGB Conc 32 % (32-34); Mean Corpuscular Volume 85 fl (84-94); Platelet Count 310 K/mm3 (140-440); Red Blood Count 5.83 M/mm3 (3.65-5.03)
[2022-04-03 09:46] LABS: Red Cell Distribution Width 20.9 % (13.2-15.2)
[2022-04-03 11:52] LABS: Anisocytosis 1+; Monocytes % (Manual) 0 % (0.0-7.3); Total Cells Counted 100
[2022-04-03 12:06] LABS: Platelet Estimate Consistent w Auto
== END 2022-04-03 08:50 | disposition home or self-care (01) ==
LOC: LAB 08:49
PROVIDERS: ATTEND Internal Medicine
DX: D64.9 Anemia, unspecified (principal)
CPT/HCPCS: 36415; 82728; 83540; 85007; 85025